=== PATIENT | male | born 1955 | race American Indian/Alaskan Native ===

== ENCOUNTER 2016-09-19 20:41 | Emergency (ER) | payer MEDICAID ==
[2016-09-19] MEDS ORDERED: NACL 0.9% 1000 ML 1,000 ML IV ONE ×2 (20:46→22:44)
--- NOTE | 2016-09-19 20:49 | Emergency Department Report ---
ED General Adult HPI - General Stated complaint: UNRESPONSIVE Time Seen by Provider: 09/19/16 20:43 - History of Present Illness Initial comments: This is a 61-year-old gentleman brought in by EMS from [facility]. I have very little history on him. Apparently the patient had decreased alertness today. He has not eaten today. He is not been responding to staff. His baseline is that he typically is able to answer questions and respond appropriately. He does have hemiparesis from prior stroke. He is on hospice due to this. Staff stated to EMS that again the patient is not eating or drinking anything today. ED caveat due to altered mental status. - Related Data Allergies Allergy/AdvReac Type Severity Reaction Status Date / Time No Known Allergies Allergy Unverified 09/19/16 20:45 ED Review of Systems ROS: Stated complaint: UNRESPONSIVE Other details as noted in HPI Comment: Unobtainable due to pts medical conditions ED Physical Exam - General General appearance: in distress, cachectic, other (glossy eyed minimally responding to painful stimuli. Appears to be minimally where of his surroundings.) - Head Head exam: Present: atraumatic, normocephalic - Eye Eye exam: Present: other (3 mm pupils minimally reactive.). Absent: scleral icterus - ENT ENT exam: Present: mucous membranes dry, other (dried blood in the top of the oropharynx. On the hard palate.) - Neck Neck exam: Present: other (no JVD or carotid bruit noted.). Absent: tenderness , meningismus - Respiratory Respiratory exam: Present: decreased breath sounds (diffusely), other ( tachypnea with belly breathing.). Absent: wheezes, rales - Cardiovascular Cardiovascular Exam: Present: regular rate, normal rhythm. Absent: systolic murmur, diastolic murmur - GI/Abdominal GI/Abdominal exam: Present: soft. Absent: tenderness, guarding - Extremities Exam Extremities exam: Present: other (minimal spontaneous movement of the right upper extremity.). Absent: pedal edema, joint swelling - Back Exam Back exam: Present: other (no obvious lesions or bony step-off.) - Neurological Exam Neurological exam: Present: other (eyes are open. He does occasionally track but mostly this is staring straight ahead. He is is not giving any type of verbal response whatsoever.) - Skin Skin exam: Present: warm, dry, intact ED Course Vital Signs 09/19/16 09/19/16 09/19/16 20:46 21:30 21:31 Temperature 98.8 F 100.9 F H Pulse Rate 82 Respiratory 47 H 50 H Rate Blood Pressure 87/56 O2 Sat by Pulse 100 69 L Oximetry 09/19/16 09/19/16 09/19/16 21:45 22:00 22:15 Temperature Pulse Rate 94 H 96 H 91 H Respiratory 49 H 45 H Rate Blood Pressure 92/65 98/72 83/56 O2 Sat by Pulse 98 Oximetry 09/19/16 09/19/16 09/19/16 22:30 23:01 23:15 Temperature Pulse Rate 95 H 88 88 Respiratory 44 H 45 H Rate Blood Pressure 85/61 98/72 83/57 O2 Sat by Pulse Oximetry 09/19/16 09/19/16 09/19/16 23:30 23:43 23:45 Temperature Pulse Rate 86 91 H 84 Respiratory 43 H 40 H 39 H Rate Blood Pressure 79/59 79/59 83/55 O2 Sat by Pulse Oximetry 09/20/16 09/20/16 09/20/16 00:00 00:15 00:29 Temperature Pulse Rate 84 97 H Respiratory 42 H 33 H 39 H Rate Blood Pressure 86/59 86/59 O2 Sat by Pulse 92 100 Oximetry 09/20/16 09/20/16 09/20/16 00:30 00:45 01:00 Temperature Pulse Rate 86 86 91 H Respiratory 42 H 41 H 46 H Rate Blood Pressure 89/63 81/58 88/64 O2 Sat by Pulse 91 92 Oximetry 09/20/16 09/20/16 09/20/16 01:50 02:01 02:15 Temperature Pulse Rate 90 79 Respiratory 27 H 36 H Rate Blood Pressure 69/47 77/53 88/64 O2 Sat by Pulse 94 98 Oximetry 09/20/16 09/20/16 09/20/16 02:31 02:45 03:01 Temperature Pulse Rate 78 81 82 Respiratory 35 H 33 H 34 H Rate Blood Pressure 69/47 69/47 85/62 O2 Sat by Pulse 97 96 97 Oximetry 09/20/16 09/20/16 03:15 03:30 Temperature Pulse Rate 92 H 84 Respiratory 26 H 25 H Rate Blood Pressure 94/68 79/52 O2 Sat by Pulse 98 96 Oximetry - Reevaluation(s) Reevaluation #1: 09/19/16 23:14 ECG at 2308 with sinus rhythm at 99 beats from it with a normal SC and QRS. Left axis is noted. Left anterior fascicular block is noted. Does have a prolonged QT at [address]-T wave abnormalities are noted. Reevaluation #2: 09/20/16 05:21 Numerous events that happen over the patient's stay here for the last 7 hours. I will try to go somewhat chronically logically. Upon arrival here IV access was obtained using a central venous catheter. Patient was given total of 3 L saline bolus. He had some modest improvement of his blood pressure with this. I did hold off on starting him on pressors initially. CT brain was obtained. This did demonstrate an interesting appearance with the frontal right lobe demonstrates some areas of high attenuation in the falx vasculature demonstrating hyperacute presentation as well. I did speak with Dr. Badillo from [facility]. She did recommend MRI MRA MRV for further evaluation as this could be concerning for a a large central clot arterial or venous. Patient did go to MRI. Ultimately this was a suboptimal study due to patient having some shaking jerking motion while there. Did notice a couple of times prior to this study that patient had some shaking movements I didn't occur to me until after he keep him back that these were likely due to some seizure activity. Patient was started on fosphenytoin and loaded with 1500 phenytoin equivalents. MRI ultimately demonstrated again a compromised study but appears to have the ear what is brought out his occlusion of the anterior cerebral arteries bilaterally. It's unclear intracerebral E if there is anything more due to the artifact. On MR of the neck there is significantly compromises well due to artifact. The right vertebral artery is not visualized which may be related to complete occlusion of the left vertebral artery is identified extensive the basilar artery. The internal carotid demonstrates approximately 50% stenosis. Patient is noted to have numerous lab abnormalities consistent with multiorgan system failure. These include kidneys heart liver. I also suspect some central etiology to the patient's significant elevation of sodium and chloride. I suspect this is a component of dysregulation centrally. In trying to come to a decision what is best for this gentleman I wait in my mind consideration of transfer to [place] for intra-arterial clot retrieval versus intra-arterial TPA. This does not seem like intervention that is likely to have significant improvement given the fact that the patient's been in this condition for greater than 12 hours. The best that I can do time wises to assess the patient was in this state that he is in now approximately 2 PM. I really feel the patient's multiple neurologic outcome will be very poor regardless of what is done and therefore elected to discuss with the patient's continuing to do hospice and is Comfort Care measures only. Did have this conversation with his . I did discuss my concerns I did discuss the lab values. I did discuss the long-term sequelae that he would undergo given the insult that he's had tonight. I didn't express my opinion that hospice care was likely the best option for him given the poor likelihood of his outcome. It appears the family is had some discussion at least regarding this already as patient was already in hospice prior to coming here. Frankly this is a treating question as to why he presented in the first place. Regardless, the patient's was agreeable with continuing hospice and having the patient on comfort measures only. I did try to be very specific with this meant in my mind. I did indicate that I felt this meant DO NOT RESUSCITATE, DO NOT INTUBATE , no heroic measures such as intra-arterial TPA or retrieval of clot. I also indicated that I felt that the appropriate thing would just be to do some normal saline for hydration and then pain and sedating medications if needed. I did indicate under this scenario the patient would likely pass away in the next 2-3 days. He could be much quicker than that as well. Patient's did ultimately agree to all of this. We have tried to make arrangements to return the patient back to his care facility to continue with hospice care. I do not feel there is a utility to keep him in the hospital as they will not be an intervention performed here nor any specific monitoring that would require a hospital setting. Point in time and been unsuccessful in making this arrangement for return to his hospice facility. For the time being we'll keep the patient here in the emergency department under palliative measures only. We will have clinical social worker deal with hospice in the morning and arrange for appropriate placement. - Central Line Placement Right SC Time Out Performed: Yes Patient Placed on Monitor/Pulse Ox: Yes Prep: mask, gown, gloves Central Line Prep: Chlorhexidine scrub Local Anesthesia Used: Lidocaine 1% Ultrasound Used for Placement: No Central Line Lumen Inserted: triple Bloods Obtained for Lab: No Central Line Position: good blood return, all ports aspirated, flus, sutured in place with 2-0 Dressing Applied: Tegaderm Post Procedure X-Ray: tip of catheter in good p Patient Tolerated Procedure: well Complications: none ED Medical Decision Making - Lab Data Result diagrams: 09/19/16 21:31 09/20/16 02:32 - Radiology Data interpreted by me: Chest x-ray with no infiltrate. Normal cardiac silhouette. No pneumothorax. Central line is appropriately placed. Critical Care Time: Yes Critical care time in (mins) excluding proc time.: 75 Critical care attestation.: If time is entered above; I have spent that time in minutes in the direct care of this critically ill patient, excluding procedure time. ED Disposition Clinical Impression: Cerebral infarct, Cerebral hemorrhage, Renal failure, Elevated troponin, Cerebral hypernatremia, Hyperchloremia Disposition: DC/TX ANOTHER TYPE HEALTHCARE Is pt being admited?: No Does the pt Need Aspirin: No Condition: Stable Referrals: PRIMARY CARE, [Primary Care Provider] - 3-5 Days
[2016-09-19] MEDS ORDERED: NACL 0.9% 500 ML 500 ML IV ONE (21:08)
[2016-09-19] MEDS ORDERED: NACL 0.9% 1000 ML 2,000 ML IV ONE (21:12)
--- NOTE | 2016-09-19 21:27 | Admit Criteria Form ---
Admission Criteria Documentation: STROKE: HEMORRHAGIC Clinical Indications for Admission to Inpatient Care (Place 'X' for any and all applicable criteria): Admission is indicated for ANY ONE of the following(1)(2)(3)(4): [ X]I. Acute hemorrhagic (eg, intracerebral) stroke Extended stay beyond goal length of stay may be needed for(1)(2)(6) [ ]a) Surgical intervention (9) [ ]b) Major deficit [ ]c) Increased intracranial pressure [ ]d) Hydrocephalus [ ]e) Seizures [ ]f) Venous thromboembolism [ ]g) Severe electrolyte abnormality (eg, hypernatremia, hyponatremia) [ ]h) Hospital-acquired infection (eg, urinary tract infection, pneumonia) [ ]i) Comorbidities (heart failure, renal failure) The original [facility] content created by [facility] has been revised. The portions of the content which have been revised are identified through the use of italic text or in bold, and [facility] has neither reviewed nor approved the modified material. All other unmodified content is copyright [facility]. Please see references footnoted in the original [facility] edition 2016
[2016-09-19] MEDS ORDERED: TYLENOL PR ONE (21:46)
[2016-09-19] MEDS ORDERED: PROTONIX IV ONE (21:46)
[2016-09-19 21:58] LABS: Basophils % (Auto) 0.2 % (0.0-1.8); Eosinophils % (Auto) 0.1 % (0.0-4.3); Mean Corpuscular HGB Conc 30 % (32-34); Mean Corpuscular Hemoglobin 31 pg (28-32); Mean Corpuscular Volume 105 fl (84-94); Platelet Count 283 K/mm3 (140-440); Red Cell Distribution Width 14.6 % (13.2-15.2); White Blood Count 20.1 K/mm3 (4.5-11.0)
[2016-09-19 22:03] LABS: Hemoglobin 14.1 gm/dl (11.8-15.2)
[2016-09-19 22:04] LABS: Hematocrit 47.3 % (35.5-45.6)
[2016-09-19 22:08] LABS: INR 1.37 (0.87-1.13)
[2016-09-19 22:09] LABS: INR 1.24 (0.87-1.13); Partial Thromboplastin Time 31.7 Sec. (24.2-36.6)
[2016-09-19 22:23] LABS: Bacteria,Urine 1+ /HPF (Negative); Bilirubin,Urine SM (Negative); Blood,Urine NEG (Negative); Ketones,Urine NEG (Negative); Leukocyte Esterase,Urine SM (Negative); Mucus,Urine FEW /HPF; Nitrite,Urine NEG (Negative)
[2016-09-19 23:33] LABS: Sodium TNR mmol/L (137-145)
[2016-09-19 23:34] LABS: Anion Gap TNR mmol/L; Carbon Dioxide TNR mmol/L (22-30); Chloride TNR mmol/L (98-107); Potassium TNR mmol/L (3.6-5.0)
[2016-09-19 23:35] LABS: BUN/Creatinine Ratio TNR; Blood Urea Nitrogen TNR mg/dL (9-20); Calcium TNR mg/dL (8.4-10.2); Glucose TNR mg/dL (75-100)
--- NOTE | 2016-09-19 23:35 | Cat Scan Report ---
FINAL REPORT PROCEDURE: CT HEAD/BRAIN WO CON TECHNIQUE: Computerized tomography of the head was performed without contrast material. HISTORY: altered COMPARISON: No prior studies are available for comparison. FINDINGS: Significant hyper attenuation is identified within the vasculature around false bilaterally. This involves vasculature in the high convexity and extends anteriorly into the frontal region. There are few small foci of hyper attenuation within the right frontal lobe most consistent with small foci of hemorrhage into this region of the frontal lobe. The hyperattenuating process in the vasculature may indicate an acute arterial occlusion or venous thrombus. Further differentiation of the vasculature is necessary this patient. This may include MRI brain with vascular imaging. There is mild edema around the central upper vessels. Mild atrophy and periventricular deep white matter changes noted. No midline displacement or mass effect is seen at this time. There is a small old lacunar infarction of the right basal ganglia near the ann [place]. The basilar cisterns are maintained. The ventricles are mildly prominent globally. The osseous cranium appears intact. The mastoid air cells are clear. The paranasal sinuses imaged are clear. IMPRESSION: Significant hyper attenuation is identified within the vasculature around falx in the upper cerebral imaging. This may indicate an acute vascular process such as arterial or venous occlusion. There is minimal edema surrounding the central vessels this region. Further imaging of the vasculature including MRA and MRV imaging would be of benefit in this patient. There are few small foci of hyper attenuation within the right frontal lobe, acute cerebral hemorrhage in this region of the frontal lobe is suspected on this study. Moderate atrophy and periventricular deep white matter change. Further imaging differentiation including MRI and vascular imaging would be appropriate in this patient. The above findings are discussed with the patient's ER physician Dr. Yi at the time of dictation 22:30 central standard time on 09/19/2016
[2016-09-19 23:36] LABS: Alanine Aminotransferase TNR units/L (7-56); Albumin TNR g/dL (3.9-5); Albumin/Globulin Ratio TNR %; Alkaline Phosphatase TNR units/L (35-129); Bilirubin,Total TNR mg/dL (0.1-1.2); Total Protein TNR g/dL (6.3-8.2)
[2016-09-19 23:37] LABS: Lipase TNR units/L (13-60)
[2016-09-20] MEDS ORDERED: ZOSYN/NS 3.375GM/50ML 3.375 GM/50 ML BAG IV SCH
[2016-09-20 00:40] LABS: Alanine Aminotransferase 60 units/L (7-56); Albumin 3.1 g/dL (3.9-5); Albumin/Globulin Ratio 0.8 %; Alkaline Phosphatase 88 units/L (35-129); BUN/Creatinine Ratio 19.45; Blood Urea Nitrogen 107 mg/dL (9-20); Calcium 8.4 mg/dL (8.4-10.2); Carbon Dioxide 21 mmol/L (22-30); Glucose 201 mg/dL (75-100); Potassium 4.6 mmol/L (3.6-5.0)
[2016-09-20] MEDS ORDERED: LEVOPHED DRIP 4 MG/NS 250 ML 4 MG/250 ML BAG IV ONE (01:56)
[2016-09-20] MEDS ORDERED: CEREBYX IV ONE (02:08)
[2016-09-20] MEDS ORDERED: NACL IV ONE (02:08)
[2016-09-20] MEDS ORDERED: [UNRECOGNIZED DRUG - OTHER] IV ONE (02:08)
[2016-09-20 02:12] LABS: Anion Gap 24 mmol/L; Chloride > 139 mmol/L (98-107); Sodium > 179 mmol/L (137-145)
--- NOTE | 2016-09-20 02:13 | Magnetic Resonance Report ---
FINAL REPORT PROCEDURE: MR MRA/MRV NECK WO CON TECHNIQUE: MR angiography of the cervical carotid and vertebral arteries was performed. The source images were reconstructed in various views using maximum intensity projection. HISTORY: mental status change COMPARISON: CT brain 09/19/2016 FINDINGS: There is motion artifact on this study. The patient was unable to cooperate for this study. No contrast was administered due to poor renal function. Common carotid arteries: The common carotid arteries appear patent on this study. Internal carotid arteries: There is evidence of minimal plaque formation within the carotid bulbs bilaterally. This appears to cause approximately 50 percent stenosis of the origin of the internal carotid arteries bilaterally. This appears slightly more pronounced on the left. External carotid arteries: The origin of the external carotid arteries is normal. The branches are not well imaged on this study. Vertebral arteries: The right vertebral artery is not visualized on this study. This may be related to complete occlusion of the right vertebral artery. The left vertebral artery is identified within the neck and extends to the basilar artery. IMPRESSION: Significantly compromised study due to artifact. The patient was not able to cooperate fully on the examination. There is evidence of minimal plaque formation within the carotid bulbs bilaterally. This does appear to cause approximately 50 percent stenosis of the origin of the internal carotid arteries bilaterally. This appears slightly more pronounced on the left. The right vertebral artery is not visualized on this study which may be related to complete occlusion. The left vertebral artery is identified and extends to the basilar artery.
[2016-09-20] MEDS ORDERED: LEVOPHED DRIP 4 MG/NS 250 ML 4 MG/250 ML BAG IV SCH ×2 (02:14→03:00)
--- NOTE | 2016-09-20 02:19 | Magnetic Resonance Report ---
FINAL REPORT PROCEDURE: MR MRA/MRV HEAD WO CON TECHNIQUE: Axial 3-D [id number] MR angiography of the [place] and brain was performed. The source images were reconstructed in various views using maximum intensity projection. HISTORY: mental status change COMPARISON: CT brain 09/19/2016 FINDINGS: There is motion artifact on this study. The patient was not able to cooperate fully for this examination. Vertebral arteries: The right vertebral artery is not visualized. This may be related to occlusion. The left vertebral artery is identified and forms the basilar artery on this study.. Basilar artery: Normal. Internal carotid arteries: The cranial portion of the internal carotid arteries are patent.. Anterior cerebral arteries: There is only a small portion of the origin of both anterior cerebral arteries identified on this study. Further evaluation of the anterior cerebral circulation should be entertained.. Middle cerebral arteries: No abnormality or occlusion... Posterior cerebral arteries: No abnormality occlusion.. Vascular malformations: None visualized on this study.. IMPRESSION: This is a compromised evaluation to the patient's inability to cooperate on this study. There is only a small portion of the origin of both anterior cerebral arteries identified on this study. This may represent occlusion of the anterior cerebral arteries bilaterally. Further evaluation of the anterior cerebral circulation should be obtained this patient. This could include traditional angiography in this patient.
[2016-09-20 02:59] LABS: Blood Urea Nitrogen 108 mg/dL (9-20); Calcium 8.2 mg/dL (8.4-10.2); Carbon Dioxide 20 mmol/L (22-30); Glucose 196 mg/dL (75-100); Potassium 4.5 mmol/L (3.6-5.0)
[2016-09-20 04:09] LABS: Anion Gap 25 mmol/L; Chloride > 139 mmol/L (98-107); Sodium > 179 mmol/L (137-145)
[2016-09-20] MEDS ORDERED: NACL 0.9% 1000 ML 1,000 ML ONE (04:37)
[2016-09-20] MEDS ORDERED: NACL 0.9% 1000 ML 1,000 ML IV ONE (05:04)
--- NOTE | 2016-09-20 07:36 | XRay Report ---
Portable supine chest: Fever, sepsis. The lungs are clear of any focal infiltrate or nodule. There is a slightly coarse overall interstitial pattern. The aorta is tortuous the heart is normal in size. The hilar regions appear normal. A right subclavian central venous line tip is located in the mid SVC. No prior study for comparison. Impression: Probable interstitial lung disease. No acute findings suspected.
[2016-09-20 09:56] VITALS: BP 109/75
== END 2016-09-20 09:25 | disposition other institution (70) ==
LOC: ED 20:41
DX: I63.9 Cerebral infarction, unspecified (principal); I61.9 Nontraumatic intracerebral hemorrhage, unspecified; N19 Unspecified kidney failure; E87.0 Hyperosmolality and hypernatremia; E87.8 Other disorders of electrolyte and fluid balance, not elsewhere classified; R79.89 Other specified abnormal findings of blood chemistry
CPT/HCPCS: 36415; 36556; 70450; 70544; 70547; 71010; 80048; 80053; 80061; 81001; 82140; 82805; 84484; 85025; 85610; 85730; 86850; 86900; 86901; 87040; 87076; 87086; 87186; 93010; 96361; 96365; 96367; 96375; 99291; C9113; J2543; J7030; Q2009; 93005